=== PATIENT | female | born 1970 | race Caucasian/White ===

== ENCOUNTER 2019-02-02 12:09 | Emergency (ER) | payer OTHER ==
[2019-02-02 13:36] VITALS: BP 110/75
[2019-02-02] MEDS ORDERED: Ketorolac INJ* 60 MG/2 ML VIAL IM ONE (13:47)
--- NOTE | 2019-02-02 14:09 | UC ---
Back Pain HPI - HPI Summary HPI Summary: right lower back pain x 1 day pain is severe 10 out of 10 , sharp, radiating to right lef no known injury , has been doing lots of moving pain is worse with movement , better with rest no fever, no chill, no urinary sx - History of Current Complaint Chief Complaint: UCBackPain Stated Complaint: BACK PAIN Time Seen by Provider: 02/02/19 13:44 Hx Obtained From: Patient Hx Last Menstrual Period: 08/23/15 ?: No Onset/Duration: Gradual Onset, Lasting Days - 1, Still Present Timing: Constant Severity Initially: Severe Severity Currently: Severe Pain Intensity: 10 Back Pain: Is Discrete @ - right lower back Character: Sharp Aggravating Factor(s): Movement Alleviating Factor(s): Rest Associated Signs And Symptoms: Negative: Swelling, Redness, Bruising, Fever, Weakness, Numbness, Tingling - Allergies/Home Medications Allergies/Adverse Reactions: Allergies Allergy/AdvReac Type Severity Reaction Status Date / Time bee venom protein (honey bee) Allergy Anaphylatic Verified 02/02/19 13:32 Shock cephalexin Allergy Unknown Verified 02/02/19 13:32 Reaction Details codeine Allergy Flushing Verified 02/02/19 13:32 PMH/Surg Hx/FS Hx/Imm Hx - Additional Past Medical History Additional PMH: Herniated discs. - Surgical History Surgical History: Yes Surgery Procedure, Year, and Place: R knee. C SECTION. kidney stents 08 - Family History Known Family History: Positive: Diabetes - Social History Alcohol Use: Rare Substance Use Type: None Smoking Status (MU): Current Some Day Smoker Type: Cigarettes Amount Used/How Often: SOCIAL,RARE Have You Smoked in the Last Year: Yes When Did the Patient Quit Smoking/Using Tobacco: 2008 Household Exposure Type: Cigarettes Review of Systems All Other Systems Reviewed And Are Negative: Yes Constitutional: Positive: Negative Skin: Positive: Negative Eyes: Positive: Negative ENT: Positive: Negative Is Patient Immunocompromised?: No Physical Exam Triage Information Reviewed: Yes Appearance: Well-Nourished, Pain Distress Vital Signs: Initial Vital Signs Temp 97.4 F 02/02/19 13:29 Pulse 88 02/02/19 13:29 Resp 20 02/02/19 13:29 BP 110/75 02/02/19 13:29 Pulse Ox 98 02/02/19 13:29 Vital Signs Reviewed: Yes Eye Exam: Normal Eyes: Positive: Conjunctiva Clear ENT: Positive: Normal ENT inspection, Hearing grossly normal, Pharynx normal Neck: Positive: Supple, Nontender, No Lymphadenopathy Respiratory: Positive: Chest non-tender, Lungs clear, Normal breath sounds Cardiovascular: Positive: RRR, No Murmur, Pulses Normal Musculoskeletal: Positive: Other: - lower back : no swelling, no erythema, severe tenderness right lower back limited ROM due to severe pain Back Pain Course/Dx - Differential Dx/Diagnosis Provider Diagnosis: Sciatica Discharge - Sign-Out/Discharge Documenting (check all that apply): Patient Departure All imaging exams completed and their final reports reviewed: No Studies - Discharge Plan Condition: Stable Disposition: HOME Prescriptions: HYDROcodone/ACETAMIN 5-325 MG* [[place] 5-325 TAB*] 1 tab PO Q6H PRN #20 tab MDD 4 tabs PRN Reason: Pain predniSONE [Prednisone 20 MG TAB] 20 mg PO BID WITH MEALS #10 tablet Patient Education Materials: Sciatica (ED) Forms: *School Release Referrals: No Primary Care Phys,NOPCP [Primary Care Provider] - 7 Days - Billing Disposition and Condition Condition: STABLE Disposition: Home
== END 2019-02-02 14:07 | disposition home or self-care (01) ==
LOC: UCCORT 12:09
DX: M54.31 Sciatica, right side (principal); F17.210 Nicotine dependence, cigarettes, uncomplicated; Z91.030 Bee allergy status; Z88.1 Allergy status to other antibiotic agents; Z88.5 Allergy status to narcotic agent
CPT/HCPCS: 96372; 99212; G0463; J1885